=== PATIENT | female | born 1975 | race Caucasian/White ===

== ENCOUNTER → 2016-08-31 | Day surgery (SDC) | payer OTHER ==
[~2016-08-31] VITALS: Ht 160 cm; Wt 71.3 kg
[~2016-08-31] MED LIST: DESYREL50 MG PO; FLECAINIDE ACET50 MG PO; LAMICTAL150 MG PO; MOBIC7.5 MG PO; PRISTIQ ER100 MG PO; THERA-VITE W/ B1 TAB PO; VOLTAREN 1% GE100 GM TOP
== END | disposition disaster alternative care site (69) ==
LOC: GSDC 08-30 08:00 → GPOC 08-30 08:00 → GSDC 13:13
PROC: 3E0T33Z Introduction of Anti-inflammatory into Peripheral Nerves and Plexi, Percutaneous Approach (ICD-10-PCS; principal; 2016-08-31)
DX: M25.521 Pain in right elbow (principal); F41.9 Anxiety disorder, unspecified; E78.5 Hyperlipidemia, unspecified; R00.2 Palpitations; K58.9 Irritable bowel syndrome, unspecified; I83.93 Asymptomatic varicose veins of bilateral lower extremities; B37.9 Candidiasis, unspecified; M77.8 Other enthesopathies, not elsewhere classified; Z79.899 Other long term (current) drug therapy
CPT/HCPCS: J1100

== ENCOUNTER → 2016-09-09 | Outpatient (CLI) | payer OTHER | END | disposition disaster alternative care site (69) | LOC: GRAD 07:40 | DX: M79.672 Pain in left foot (principal); S39.013A Strain of muscle, fascia and tendon of pelvis, initial encounter; X58.XXXA Exposure to other specified factors, initial encounter ==